=== PATIENT | male | born 1985 | race Hispanic/Latino ===

== ENCOUNTER 2017-10-24 01:45 | Emergency (ER) | payer BC ==
[2017-10-24 01:57] VITALS: BMI 26.4
[2017-10-24 02:00] VITALS: O2SAT 98
[2017-10-24] MEDS: Sodium Chloride 0.9% 1,000 ML IV SCH ×3 (03:20→05:29)
[2017-10-24 03:39] LABS: BASO # 0.1 K/uL (0.0-0.2); BASO % 2.3 % (0.0-2.0); EOS # 0.2 K/uL (0.0-0.7); EOS % 2.8 % (0.0-4.0); HEMOGLOBIN 14.4 g/dL (12.0-18.0); LYMPH # 2.4 K/uL (1.0-4.3); LYMPH % 39.4 % (20.0-40.0); MEAN CORPUSCULAR HEMOGLOBIN 25.8 pg (27.0-31.0); MEAN CORPUSCULAR HGB CONC 32.6 g/dL (33.0-37.0); MEAN PLATELET VOLUME 9.3 fl (7.2-11.7); MONO # 0.5 K/uL (0.0-0.8); MONO % 8.2 % (0.0-10.0); NEUT # 2.9 K/uL (1.8-7.0); NEUT % 47.3 % (50.0-75.0); RBC 5.6 Mil/uL (4.40-5.90); RED CELL DISTRIBUTION WIDTH 17.1 % (11.5-14.5); WHITE BLOOD COUNT 6.2 K/uL (4.8-10.8)
[2017-10-24 03:45] LABS: ALB/GLOB RATIO 1.4 (1.0-2.1); ALBUMIN 4.3 g/dL (3.5-5.0); ALT/SGPT 34 U/L (21-72); AST/SGOT 30 U/L (17-59); BLOOD UREA NITROGEN 19 mg/dl (9-20); CALCIUM 9.2 mg/dL (8.4-10.2); GFR AFRICAN-AMERICAN > 60; GFR NON-AFRICAN AMERICAN > 60; LIPASE 102 U/L (23-300)
--- NOTE | 2017-10-24 03:58 | ED PDOC ---
HPI: Abdomen Time Seen by Provider: 10/24/17 02:13 Chief Complaint (Nursing): Abdominal Pain Chief Complaint (Provider): Abdominal Pain History Per: Patient History/Exam Limitations: no limitations Onset/Duration Of Symptoms: Days (x2) Outside of [place] travel?: No Location Of Pain/Discomfort: Other ("mid-abdomen") Associated Symptoms: Fever, Vomiting Additional Complaint(s): 32 year old male presents to ED with complaints of intermittent abdominal pain x2 days and has no past medical history. Describes the pain as cramping and localizes it to the mid-abdomen region. (+) low grade fever T 99-100, multiple episodes of vomiting (non-bloody, non-bilious), and non-bloody diarrhea. Notes that he recently returned from [place] x9 days ago. Denies sick contacts, antibiotic use, urinary symptoms, or abdominal surgeries. PCP: Maria T Past Medical History Reviewed: Historical Data, Nursing Documentation, Vital Signs Vital Signs: Last Vital Signs Temp 97.4 F L 10/24/17 01:57 Pulse 78 10/24/17 01:57 Resp 16 10/24/17 01:57 BP 130/88 10/24/17 01:57 Pulse Ox 98 10/24/17 05:56 - Medical History PMH: No Chronic Diseases - Surgical History Surgical History: Denies: No Surg Hx - Family History Family History: States: Diabetes - Social History Drugs: Denies - Home Medications Home Medications: Ambulatory Orders Medication Instructions Recorded Atropine/Hyoscyamine [] 1 tab PO TID PRN #20 tab 10/24/17 Dicyclomine [Dicyclomine HCl] 10 mg PO TID PRN #15 cap 10/24/17 Ondansetron ODT [Zofran ODT] 4 mg PO DAILY PRN #20 odt 10/24/17 - Allergies Allergies/Adverse Reactions: Allergies Allergy/AdvReac Type Severity Reaction Status Date / Time No Known Allergies Allergy Verified 10/24/17 01:57 Review of Systems ROS Statement: Except As Marked, All Systems Reviewed And Found Negative Constitutional: Positive for: Fever Gastrointestinal: Positive for: Vomiting, Abdominal Pain, Diarrhea Genitourinary Male: Negative for: Dysuria, Frequency, Incontinence, Hematuria Physical Exam - Reviewed Nursing Documentation Reviewed: Yes Vital Signs Reviewed: Yes - Physical Exam Appears: Positive for: Well, Non-toxic, Uncomfortable (mild distress) Skin: Positive for: Normal Color, Warm, Dry Eye Exam: Positive for: Normal appearance ENT: Negative for: Normal ENT Inspection (dry mucous membranes) Neck: Positive for: Normal Cardiovascular/Chest: Positive for: Regular Rate, Rhythm. Negative for: Murmur Respiratory: Positive for: Normal Breath Sounds. Negative for: Rales, Rhonchi, Wheezing, Respiratory Distress Gastrointestinal/Abdominal: Positive for: Soft, Tenderness (mild mid-abdominal tenderness). Negative for: Mass, Distended, Guarding, Rebound Back: Positive for: Normal Inspection. Negative for: L CVA Tenderness, R CVA Tenderness Extremity: Positive for: Normal ROM. Negative for: Deformity Neurologic/Psych: Positive for: Alert, Oriented. Negative for: Motor/Sensory Deficits - Laboratory Results Result Diagrams: 10/24/17 03:15 10/24/17 03:15 - ECG O2 Sat by Pulse Oximetry: 98 (RA) Pulse Ox Interpretation: Normal Medical Decision Making Medical Decision Makin Initial impression: gastroenteritis Initial plan: * Labs * Lipase * Bentyl 10mg IM * NS IV * Pepcid 20mg IVP * Zofran 4mg IVP * Ova and parasite * Stool Cx * Re-eval On reevaluation, the patient reports mild improvement of symptoms, reports no nausea however still continues to complain of mild discomfort to the mid abdomen. On exam, abdomen remained soft with no tenderness, no guarding, no rebound. Patient medicated with Toradol 30 mg IV and by mouth. Labs reviewed and are within normal limits. Diagnostic results discussed with the patient detailed. Diagnosis of gastroenteritis discussed with the patient. Advised to drink plenty of fluids and Tete diet. Based on history, exam and diagnostic results plan will be for outpatient follow-up with PMD. Patient instructed to follow up with primary care physician in 1-2 days without fail. Advised to take medication as prescribed. Return to the emergency room at any time for any new or worsening symptoms. Patient states he fully agrees with and understands discharge instructions. States that he agrees with the plan and disposition. Verbalized and repeated discharge instructions and plan. I have given the patient opportunity to ask any additional questions. Scribe Attestation: Documented by Agueda Arcos acting as a scribe for Griselda Cesar PA-C. MD Scribe Attestation: All medical record entries made by the Britton were at my direction and personally dictated by me. I have reviewed the chart and agree that the record accurately reflects my personal performance of the history, physical exam, medical decision making, and the department course for this patient. I have also personally directed, reviewed, and agree with the discharge instructions and disposition. Disposition - Clinical Impression Clinical Impression: Gastroenteritis Counseled Patient/Family Regarding: Studies Performed, Diagnosis, Need For Followup, Rx Given - Disposition Disposition: Routine/Home Disposition Time: 05:54 Condition: STABLE Additional Instructions: Thank you for letting us take care of you today. You were treated for gastroenteritis. The emergency medical care you received today was directed at your acute symptoms. If you were prescribed any medication, please fill it and take as directed. It may take several days for your symptoms to resolve. Return to the Emergency Department if your symptoms worsen, do not improve, or if you have any other problems. Please contact your doctor in 2 days for re-evaluation and follow up. Bring any paperwork you were given at discharge with you along with any medications you are taking to your follow up visit. Our treatment cannot replace ongoing medical care by a primary care provider (PCP) outside of the emergency department. Thank you for allowing the [facility] team to be part of your care today. Prescriptions: Atropine/Hyoscyamine [] 1 tab PO TID PRN #20 tab PRN Reason: Dyspepsia Dicyclomine [Dicyclomine HCl] 10 mg PO TID PRN #15 cap PRN Reason: Other Ondansetron ODT [Zofran ODT] 4 mg PO DAILY PRN #20 odt PRN Reason: Nausea/Vomiting Instructions: Gastroenteritis (ED) Forms: [facility] (Fijian), [facility] School/Work Excuse Print Language: YAKUT
[2017-10-24] MEDS ORDERED: Sodium Chloride 0.9% 1,000 ML IV SCH (05:00)
[2017-10-24] MEDS ORDERED: Atrop/Hyos/Scop/PhenoB Elixir PO STA (05:55)
[2017-10-24 06:09] VITALS: BP 129/67; PULSE 87; RESP 18; TEMP 98.1
== END 2017-10-24 06:10 | disposition home or self-care (01) ==
LOC: H.ER 01:45
DX: K52.9 Noninfective gastroenteritis and colitis, unspecified (principal)
CPT/HCPCS: 80053; 83690; 85025; 96361; 96372; 96374; 96375; 99283; J0500; J1885; J2405; J7040